=== PATIENT | female | born 1960 | race Two or more races ===

== ENCOUNTER 2023-04-06 07:18 | Outpatient (CLI) | payer OTHER | END 2023-04-06 07:25 | disposition home or self-care (01) | LOC: NUCLEAR 07:18 | PROVIDERS: ATTEND Internal Medicine | DX: C56.1 Malignant neoplasm of right ovary (principal) ==

== ENCOUNTER → 2023-08-12 | Outpatient (CLI) | payer OTHER | END | disposition home or self-care (01) | LOC: NUCLEAR 08:00 | PROVIDERS: ATTEND Internal Medicine | DX: C56.1 Malignant neoplasm of right ovary (principal) ==

== ENCOUNTER 2024-05-14 08:53 | Outpatient (CLI) | payer OTHER | END 2024-05-14 08:54 | disposition home or self-care (01) | LOC: NUCLEAR 08:53 | PROVIDERS: ATTEND Internal Medicine | DX: C56.1 Malignant neoplasm of right ovary (principal) ==

== ENCOUNTER 2024-12-07 08:06 | Outpatient (CLI) | payer OTHER | END 2024-12-07 08:16 | disposition home or self-care (01) | LOC: NUCLEAR 08:06 | PROVIDERS: ATTEND Internal Medicine | DX: C56.1 Malignant neoplasm of right ovary (principal) ==